=== PATIENT | female | born 1955 | race Caucasian/White ===

== ENCOUNTER 2020-02-10 16:23 | Emergency (ER) | payer SELFPAY ==
[~2020-02-10] VITALS: Ht 157.5 cm; Wt 59.0 kg
--- NOTE | 2020-02-10 16:23 | NUR ---
Patient to ER bed 07 to gown for evaluation. Side rails up. Report given to AUNDREA Ro
--- NOTE | 2020-02-10 16:24 | NUR ---
Patient brought in via Medical transport. Medical transport reports that patient is AOx4 and requested to be sent to [facility]. Patient refusing to give any information. States " I don't know wny I am here. I want to go home. I don't want anyone to touch me." Patient resides in room and board where she rents a room with a division chair. Medical transport gave phone number of speak to Mi. Will attempt to contact Mi to gather futher information.
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
--- NOTE | 2020-02-10 17:08 | NUR ---
DR GUTHRIE IN TO ASSESS. PT REFUSES TREATMENT
--- NOTE | 2020-02-10 17:24 | NUR ---
PT CALM, ALERT, RESP UNLABORED. COMMUNICATES CLEARLY IN FULL COMPLETE SENTENCES. DENIES CP/SOB. NO DISTRESS. NO COMPLAINTS, REFUSING TREATMENT, MD PAL
--- NOTE | 2020-02-10 17:30 | NUR ---
Spoke to Simin and Juaquin Ferreira, Daughter in law and son. Informed them that patient is refusing all care. Patient is AOx4 here in ED. Patient states " I don't want you to touch me, I don't want any blood work. I want to go home." Patient denies SI/HI. Informed patient will be transported back to her residence. Family is in agreement. Will arrange transport.
--- NOTE | 2020-02-10 18:10 | NUR ---
Patient given written and verbal discharge instructions and verbalizes understanding. ER MD discussed with patient the results and treatment provided. Patient in stable condition. ID arm band removed. Rx not given. Patient educated on pain management and to follow up with PMD. Pain Scale 0/10. Opportunity for questions provided and answered. Medication side effect fact sheet provided.
== END 2020-02-10 18:10 | disposition home or self-care (01) ==
LOC: SED 16:23
DX: Z13.30 Encounter for screening examination for mental health and behavioral disorders, unspecified (principal); F20.9 Schizophrenia, unspecified; G30.9 Alzheimer's disease, unspecified; F02.80 Dementia in other diseases classified elsewhere, unspecified severity, without behavioral disturbance, psychotic disturbance, mood disturbance, and anxiety
CPT/HCPCS: 99283